=== PATIENT | female | born 1980 | race Caucasian/White ===

== ENCOUNTER 2017-01-06 11:11 | Emergency (ER) | payer OTHER ==
[~2017-01-06] VITALS: Ht 167.6 cm; Wt 65.0 kg
[~2017-01-06 11:11] MED LIST: MELA3TAB14 PO; POLYSOL6 LEFT EYE; TOBR.3%SDO
[2017-01-06 11:13] VITALS: BP 154/74; PULSE 83; RESP 20; TEMP 98.1; O2SAT 96
--- NOTE | 2017-01-06 12:41 | PD ---
HPI Chief Complaint: Eye Problems/Injury Time Seen by Provider: 12:41 Travel History International Travel<30 days: No Contact w/Intl Traveler<30days: No Traveled to known affect area: No History of Present Illness HPI 36-year-old female, with low functioning autism, presents to the emergency department, accompanied by her angiographer, with complaint of left eye redness and irritation per proximally 2 days. Patient is nonverbal. She has been rubbing her left eye a lot. Was seen in [place] care yesterday and was told to come to the emergency department for evaluation. Patient does have history of bilateral glaucoma. The angiographer says that she has been requiring more help than normal because they think her vision has decreased. He has not had any fever or vomiting. She was given a Tylenol this morning for pain. No known allergies. No other modifying factors or associated signs and symptoms. PFSH Past Medical History Cancer: No Diabetes: No Glaucoma: Yes (BILATERAL EYES) Hepatitis: No Hiatal Hernia: No Hypertension: No Thyroid Disease: No ?: Not LMP: DEPO Past Surgical History Eye Surgery: Yes (EYE SX) Pacemaker: No Thoracic Surgery: Yes (RIGHT BREAST BX) Social History Alcohol Use: No Tobacco Use: No Allergies-Medications (Allergen,Severity, Reaction): Coded Allergies: No Known Allergies (Verified , 01/06/17) Reported Meds & Prescriptions Reported Meds & Active Scripts Active Polytrim Opth Drops (Polymyxin/Trimethoprim Sulfate) 10,000-0.1 Unit/Ml-% Soln 2 Drop LEFT EYE Q6HR 7 Days Polytrim (Polymyxin/Trimethoprim Sulfate) Op E[place] 1 Drop LEFT EYE QID 7 Days Reported Tobrex 0.3% Opht Soln (Single Dose) (Tobramycin Sulfate) 1 Dose Soln 1 Dose .XX [Melatonin] 6 Mg PO HS Review of Systems Except as stated in HPI: all other systems reviewed are Neg Physical Exam Exam Limitations: Uncooperative Narrative GENERAL: Well-nourished, well-developed female patient, in no acute distress; autistic, nonverbal SKIN: Warm and dry. HEAD: Atraumatic. Normocephalic. EYES: Right eye is clouded and pupil is not seen. Left eye with scleral erythema and crusting noted to the upper eyelashes. ENT: Mucosa pink and moist. Airway patent. NECK: Trachea midline. CARDIOVASCULAR: Regular rate. RESPIRATORY: No accessory muscle use. GASTROINTESTINAL: Rounded. NEUROLOGICAL: Awake and alert. Oriented 3. No obvious cranial nerve deficits. Motor grossly within normal limits. Data Data Last Documented VS Vital Signs Date Time Temp Pulse Resp B/P Pulse Ox O2 Delivery O2 Flow Rate FiO2 01/06/17 11:13 98.1 83 20 154/74 96 Orders Proparacaine 0.5% Opth Soln (Alcaine 0.5 (01/06/17 12:45) [facility] Medical Decision Making Medical Screen Exam Complete: Yes Emergency Medical Condition: Yes Medical Record Reviewed: Yes Differential Diagnosis Conjunctivitis, corneal abrasion, foreign body Narrative Course 36-year-old autistic female with left scleral erythema and some crusting noted to her left upper eyelashes. She presents with her angiographer. Patient is uncooperative for physical exam. She does have history of glaucoma. She is afebrile and nontoxic-appearing. I will treat the patient empirically for conjunctivitis. Instructed primary care pediatrician to have the patient follow up with ophthalmology. Polytrim eyedrops prescribed for home. Patient verbalizes understanding and agreement with treatment plan. Patient is medically cleared and stable for discharge. Discussed reasons to return to the emergency department. Instructed patient to follow up with primary care provider. Patient agrees with treatment plan. The patients vital signs are stable and the patient is stable for outpatient follow-up and treatment. Patient discharged home, stable and in no acute distress. Diagnosis Primary Impression: Conjunctivitis, left eye Qualified Code: H10.9 - Conjunctivitis of left eye, unspecified conjunctivitis type Referrals: Senior Hr Manager Primary Care Physician Additional Instructions: Use antibiotic drops as prescribed Apply warm or cool compresses to both eyes for a few minutes several times daily to minimize irritation Avoid triggers, such as allergens, that may irritate your eyes Wash your hands frequently Do not share washcloths, towels, pillows, or any other material that has touched your eyes with any other household members Follow-up with your primary care provider Follow-up with ophthalmology Return to the emergency department immediately with worsening of symptoms Med/Other Pt SpecificInfo: Prescription(s) given Scripts Polymyxin B-Trimethoprim Opth Drops (Polytrim Opth Drops)10,000-0.1 Unit/Ml-% Soln2 Drop LEFT EYE Q6HR 7 Days Ref 0 Prov:Candi Lopez 01/06/17 Disposition: 01 DISCHARGE HOME Condition: Stable Candi Lopez Jan 06, 2017 12:41
[2017-01-06] MEDS ORDERED: PROPARACAINE HCL 0.5% OPHT SOLN 15 ML BTL LEFT EYE ONE (12:45)
[2017-01-06] MEDS ORDERED: POLY10O LEFT EYE (12:50)
== END 2017-01-06 13:46 | disposition home or self-care (01) ==
LOC: NEPB 11:11
DX: H10.9 Unspecified conjunctivitis (principal); F84.0 Autistic disorder; H40.9 Unspecified glaucoma
CPT/HCPCS: 99282

== ENCOUNTER 2017-12-11 14:18 | Emergency (ER) | payer SELFPAY ==
[~2017-12-11] VITALS: Ht 162.6 cm; Wt 60.0 kg
[~2017-12-11 14:18] MED LIST changes: +POLY10O LEFT EYE
[2017-12-11 14:23] VITALS: BP 129/85; PULSE 85; RESP 14; TEMP 98.3; O2SAT 100
[2017-12-11] MEDS ORDERED: CLAR10CA3 PO (15:54)
[2017-12-11] MEDS ORDERED: FLUT1SPR5 EACH NARE (15:54)
--- NOTE | 2017-12-11 16:09 | PD ---
HPI Chief Complaint: Cold / Flu Symptoms Time Seen by Provider: 15:39 Travel History International Travel<30 days: No Contact w/Intl Traveler<30days: No Traveled to known affect area: No History of Present Illness HPI 37-year-old female with severe MR presents to emergency department for rule out influenza. Patient was in a longterm, has been coughing and sneezing especially when she goes outside. She has had no fever according to his caregiver. Patient cannot give her own history. The caregiver states she' s had increased congestion and coughing especially outdoors. This is been present for the past week. She has no known drug allergies. PFSH Past Medical History Cancer: No Cardiovascular Problems: No Diabetes: No Glaucoma: Yes (BILATERAL EYES) Hepatitis: No Hiatal Hernia: No Hypertension: No Medical other: Yes (BLIND RIGHT EYE) Respiratory: No Thyroid Disease: No ?: Not Past Surgical History Eye Surgery: Yes (EYE SX) Pacemaker: No Thoracic Surgery: Yes (RIGHT BREAST BX) Other Surgery: Yes Social History Alcohol Use: No Tobacco Use: No Substance Use: No Allergies-Medications (Allergen,Severity, Reaction): Coded Allergies: No Known Allergies (Verified Adverse Reaction, Unknown, 12/11/17) Reported Meds & Prescriptions Reported Meds & Active Scripts Active Flonase Nasal [place] (Fluticasone Nasal [place]) 50 Mcg/Act [place] 100 Mcg EACH NARE BID Claritin (Loratadine) 10 Mg Cap 10 Mg PO DAILY Reported [Melatonin] 6 Mg PO HS Review of Systems ROS Limitations: Clinical Condition, Speech Impaired Except as stated in HPI: all other systems reviewed are Neg General / Constitutional: No: Fever, Chills Eyes: No: Visual changes HENT: No: Headaches Cardiovascular: No: Chest Pain or Discomfort Respiratory: No: Shortness of Breath Gastrointestinal: No: Abdominal Pain Genitourinary: No: Dysuria Musculoskeletal: No: Pain Skin: No Rash Neurologic: No: Weakness Psychiatric: No: Depression Endocrine: No: Polydipsia Hematologic/Lymphatic: No: Easy Bruising Physical Exam Narrative GENERAL: Patient appears in no obvious distress. SKIN: Warm and dry. Normal color. Normal turgor. No rash. HEAD: Atraumatic. Normocephalic. EYES: Pupils equal and round. No scleral icterus. No injection or drainage. ENT: No nasal bleeding or discharge. Mucous membranes pink and moist. Pharynx is clear. Airway is patent. Clear bilaterally. NECK: Trachea midline. Supple and nontender. CARDIOVASCULAR: Regular rate and rhythm. RESPIRATORY: No accessory muscle use. Clear to auscultation. Breath sounds equal bilaterally. MUSCULOSKELETAL: Extremities without clubbing, cyanosis, or edema. No obvious deformities. NEUROLOGICAL: Awake and alert. No obvious cranial nerve deficits. Motor grossly within normal limits. Five out of 5 muscle strength in the arms and legs. Normal speech. PSYCHIATRIC: Appropriate mood and affect; insight and judgment normal. Data Data Last Documented VS Vital Signs Date Time Temp Pulse Resp B/P (MAP) Pulse Ox O2 Delivery O2 Flow Rate FiO2 12/11/17 16:17 12/11/17 14:23 98.3 85 14 100 Room Air Orders Orders Influenzae A/B Antigen (12/11/17 14:41) Ed Discharge Order (12/11/17 16:09) MDM Medical Decision Making Medical Screen Exam Complete: Yes Emergency Medical Condition: Yes Differential Diagnosis Respiratory infection. Influenza. Allergic rhinitis. Narrative Course Rapid influenza is negative. Exam shows no sign of infection. Patient is felt to have allergic rhinitis. Patient treated with Claritin times daily #30. Patient also given Flonase nasal spray 2 sprays each nostril daily. Patient follow with her primary care physician as needed. Diagnosis Primary Impression: Allergic rhinitis Qualified Codes: J30.1 - Allergic rhinitis due to pollen Patient Instructions: Allergies (ED), General Instructions Additional Instructions: Rapid influenza is negative. Exam shows no sign of infection. Patient is felt to have allergic rhinitis. Patient treated with Claritin times daily #30. Patient also given Flonase nasal spray 2 sprays each nostril daily. Patient follow with her primary care physician as needed. Scripts Fluticasone Nasal [place] (Flonase Nasal [place]) 50 Mcg/Act [place] 100 MCG EACH NARE BID for Allergies, #1 BOTTLE 0 Refills Prov: Doug Garza MD 12/11/17 Loratadine (Claritin) 10 Mg Cap 10 MG PO DAILY for Allergy Management, #30 CAP 0 Refills Prov: Doug Garza MD 12/11/17 Disposition: 01 DISCHARGE HOME Condition: Stable Hung Lino Dec 11, 2017 16:09
== END 2017-12-11 16:17 | disposition home or self-care (01) ==
LOC: NEPD 14:18
DX: J30.1 Allergic rhinitis due to pollen (principal); R05 Cough; H40.9 Unspecified glaucoma; H54.61 Unqualified visual loss, right eye, normal vision left eye
CPT/HCPCS: 87804; 99283